=== PATIENT | female | born 1970 | race Caucasian/White ===

== ENCOUNTER 2022-09-08 07:45 | Observation (INO) ==
--- NOTE | 2022-09-01 15:22 | Anesthesiology Consultation ---
Date of Service September 01, 2022 Assessment & Plan (1) Encounter for pre-operative examination: - COVID screening: Per assessment on 09/01: No known COVID-19 positive contacts or current COVID-19 related symptoms. Travel screen negative. Patient vaccinated. At surgeon discretion if preop Covid testing being done. - Check test AM DOS Chart Review Chart Review: Acceptable Risk for Surgery and Patient NOT seen in Pre Admission Testing History Surgery Operation Date: 09/08/22 07:00 Proposed Procedures p Right Breast Mastectomy with [place] Lymph Node Biopsy (Injection Only Nuc Med at 800) - Flash Scott MD, FACS Height/Weight Height: 5 ft 5.5 in Weight: 56.699 kg Allergies Allergy/AdvReac Type Severity Reaction Status Date / Time amoxicillin Allergy Intermediate Hives Verified 09/01/22 14:56 hydromorphone [From Dilaudid] AdvReac Severe Vomiting Verified 09/01/22 14:56 Medications Home Medications Medication Instructions Recorded Confirmed Last Taken clindamycin HCl 300 mg capsule 300 mg PO TID 1 week #21 caps 08/25/22 09/01/22 Unknown diazepam 2 mg tablet (Valium) 2 mg PO TID PRN muscle spasm #10 08/25/22 09/01/22 Unknown tabs loratadine 10 mg tablet (Claritin) 10 mg PO QAM 08/25/22 09/01/22 Unknown oxycodone-acetaminophen 5 mg-325 1 tab PO Q4H PRN pain #18 tabs 08/25/22 09/01/22 Unknown mg tablet (Endocet) Past Medical History Medical History (Updated 09/01/22 @ 15:19 by Nakia Mcpherson) Anemia mild Breast cancer left breast (9 yrs ago) > mastectomy; currently having symptoms of breast cancer on right side History of COVID-19 06/18-06/24/22 (home test), fever, chills, diarrhea, headache, muscle aches, fatigue > resolved Migraine "gets after anesthesia" Past Family History Family History (Updated 05/08/22 @ 16:52 by Marcia Negron RN) Father Diabetes Heart disease Grandmother (Paternal) Diabetes Mother Breast cancer Hypertension Past Surgical History Surgical History (Updated 09/01/22 @ 15:03 by Dinorah Granado) H/O breast reconstruction left H/O left mastectomy (2011) History of colonoscopy (2001) History of dilatation and curettage History of esophagogastroduodenoscopy (EGD) History of lumpectomy of right breast (2011) History of photorefractive keratectomy (PRK) History of tonsillectomy (1979) History of tooth extraction Hx of breast reduction, elective right Social History Smoking Status: Never smoker Do You Dip or Chew Tobacco: No Hx Alcohol Use: Yes Alcohol type: beer, wine and hard liquor alcohol intake frequency: other Alcohol Intake Frequency Comment: 1-2 DRINKS PER WEEK Hx Substance Use: No substance use type: does not use Lab Results Anesthesia Preop Results Results Anesthesia Widget: WBC 6.47 K/ul (4.8-10.8) 08/28/22 Hgb 12.9 g/dl (12.0-16.0) 08/28/22 Hct 38.9 % (37.0-47.0) 08/28/22 Plt 269 K/uL (130-400) 08/28/22 Na 140 mmol/L (136-145) 08/28/22 K 4.0 mmol/L (3.5-5.1) 08/28/22 Cl 105 mmol/L (98-107) 08/28/22 CO2 28 mmol/L (21-32) 08/28/22 BUN 16 mg/dl (6-23) 08/28/22 Creat 0.94 mg/dl (0.6-1.2) 08/28/22 Glucose Level 86 mg/dl (70-99(Fasting)) 08/28/22 PT 10.5 Seconds (9.0-12.0) 08/28/22 INR 1.0 (0.9-1.1) 08/28/22 Testing Electrocardiogram Date: 08/28/22 Findings: + NSR @ (51)
[~2022-09-08 07:45] MED LIST: CLINDA 900 MG **Premixed Bag IV SCH; LR 15ML/HR IV SCH
--- NOTE | 2022-09-08 09:08 | History & Physical Bridge Note ---
Date of Service September 08, 2022 History & Physical Bridge Note I have examined the patient, reviewed the History & Physical and in the interval since the performance of the History & Physical I have noted the following changes of clinical significance: no changes noted
[2022-09-08] MEDS ORDERED: BUPIVACAINE 0.5 % 5 MG/1 ML MPF 30ML VIAL ONE (10:53)
[2022-09-08] MEDS ORDERED: GENTAMICIN SULFATE 40 MG/ML 2 ML VIAL ONE ×2 (10:53→13:37)
[2022-09-08] MEDS ORDERED: LIDOCAINE 2% MPF LOCAL 5 ML VIAL ONE (10:54)
[2022-09-08] MEDS ORDERED: MIDAZOLAM HCL 1 MG/ML 2ML VIAL ONE (10:54)
[2022-09-08] MEDS ORDERED: ceFAZolin 330 MG/ML 1 GM VIAL ONE ×2 (10:54→13:37)
[2022-09-08] MEDS ORDERED: PROPOFOL IV EMULSION 10 MG/ML 20 ML VIAL IV ONE (10:54)
[2022-09-08] MEDS ORDERED: METHYLENE BLUE 0.5% 10 ML VIAL ONE (10:54)
[2022-09-08] MEDS ORDERED: fentaNYL citrate PF 100 MCG/2 ML VIAL ONE ×2 (10:54→12:15)
[2022-09-08] MEDS ORDERED: LIDOCAINE/EPINEPHRINE 1% 20 ML VIAL ONE (10:54)
[2022-09-08] MEDS ORDERED: ATROPINE SULFATE 0.1 MG/ML 10ML SYR IV PRN (10:56)
[2022-09-08] MEDS ORDERED: ePHEDrine sulfate 50 MG/ML AMP IV PRN (10:56)
[2022-09-08] MEDS ORDERED: PROMETHAZINE HCL 6.25 MG in SODIUM CHLORIDE 0.9% 50 ML IV PRN (10:56)
[2022-09-08] MEDS ORDERED: ONDANSETRON INJ 2 MG/ML 2 ML VIAL IV PRN ×2 (10:56→15:13)
[2022-09-08] MEDS ORDERED: ACETAMINOPHEN 1000 MG/100 ML IV IV ONE (11:02)
[2022-09-08] MEDS ORDERED: FAMOTIDINE/PF 20 MG/2 ML VIAL IV ONE (11:02)
[2022-09-08] MEDS ORDERED: ONDANSETRON INJ 2 MG/ML 2 ML VIAL ONE (12:16)
[2022-09-08] MEDS ORDERED: ePHEDrine sulfate 50 MG/ML AMP ONE (12:16)
[2022-09-08] MEDS ORDERED: KETAMINE 50 MG/5 ML SYRINGE ONE (12:43)
--- NOTE | 2022-09-08 13:09 | Post Operative Brief Note ---
PG Immediate Post Op with CF Date of Surgery September 08, 2022 Pre & Post Diagnosis Operation Date: 09/08/22 11:20 Pre-Op Diagnosis: Lump Right Breast, History Left Breast Cancer Post-Op Diagnosis: Lump Right Breast, History Left Breast Cancer I identified the patient and participated in the time-out.: Yes Procedure Operation Date: 09/08/22 11:20 Actual Procedures p Right Breast Mastectomy with [place] Lymph Node Biopsy(Left) - Flash Scott MD, FACS s Right First Stage Immediate Breast Reconstruction with Tissue Expanders and Acellular Dermal Matrix(Right) - Karon Navarro MD Surgeon Flash Scott MD, FACS Fitter Hand Jes Zapata Estimated Blood Loss 20 Findings Consistent with Post-Op Diagnosis Right breast tissue and right sentinel lymph nodes Specimens Specimen Description: A. Right [place] lymph node B: Right Breast Silk Suture Lateral
--- NOTE | 2022-09-08 13:51 | Operative Report (OR) ---
DATE OF OPERATION: 09/08/2022. NAME OF OPERATION: Right mastectomy with sentinel lymph node biopsy. PREOPERATIVE DIAGNOSIS: History of left breast cancer. POSTOPERATIVE DIAGNOSIS: History of left breast cancer. STAFF SURGEON: Flash Scott MD. CEMENT CAR DUMPER: Jeana Duggan PA-C and Viji Galloway. ANESTHESIA: General. DESCRIPTION OF PROCEDURE: The patient was brought in the operating room, placed on the operating table in the supine position. Her right arm was extended onto an arm board. A roll was placed under her right shoulder. The patient had a history of breast cancer as a young woman with a left mastectomy. She wishes to have a right prophylactic mastectomy. Therefore, we are proceeding with right mastectomy and sentinel lymph node biopsy on the right side. She is going to have reconstruction. The patient prepped and draped in the usual fashion. My medical assistant secretary helped with prepping, draping, removal of breast tissue, removal of the right axillary lymph nodes. Incision was made in the right axilla using Neoprobe, carrying dissection down through subcutaneous superficial scar tissue, which may have been from her prior surgery in the right breast, which was a mammopexy. We did find the sentinel lymph nodes and they were sent for routine pathology. At this point, elliptical incision was made around the nipple areolar complex and then dissection carried down the breast tissue from the subcutaneous tissue. There was scar tissue inferiorly from her previous mammopexy. The breast was marked with a long silk suture lateral. After the mastectomy, Dr. Navarro and her team took over to complete the initial reconstruction. Job ID: [id number] [facility]
[2022-09-08] MEDS ORDERED: SODIUM CHLOR/HYPOCHLOROUS ACID 475 ML BTL IR ONE (14:09)
[2022-09-08] MEDS ORDERED: SUGAMMADEX SODIUM 200 MG/2 ML VIAL IV ONE (14:39)
[2022-09-08] MEDS ORDERED: LORazepam 0.5 MG TAB PO PRN (15:13)
[2022-09-08] MEDS ORDERED: MoRPHine SULFATE 4 MG/ML 1 ML CARP\\VIAL IV PRN (15:13)
[2022-09-08] MEDS ORDERED: MoRPHine SULFATE 2 MG/ML CARP IV PRN (15:13)
[2022-09-08] MEDS ORDERED: diphenhydrAMINE Capsule 25 MG CAP PO PRN (15:13)
[2022-09-08] MEDS ORDERED: PROMETHAZINE HCL 12.5 MG in SODIUM CHLORIDE 0.9% 50 ML IV PRN (15:13)
[2022-09-08] MEDS ORDERED: diphenhydrAMINE 50 MG/ML VIAL IV PRN (15:13)
[2022-09-08] MEDS ORDERED: oxyCODONE/ACETAMINOPHEN 5mg/325mg TAB PO PRN ×2 (15:13)
[2022-09-08] MEDS ORDERED: ACETAMINOPHEN 325 MG TAB PO PRN ×2 (15:13→21:23)
--- NOTE | 2022-09-08 15:21 | Post Operative Brief Note ---
PG Immediate Post Op with CF Date of Surgery September 08, 2022 Pre & Post Diagnosis Operation Date: 09/08/22 11:20 Pre-Op Diagnosis: Lump Right Breast, History Left Breast Cancer Post-Op Diagnosis: Lump Right Breast, History Left Breast Cancer I identified the patient and participated in the time-out.: Yes Procedure Operation Date: 09/08/22 11:20 Actual Procedures p Right Breast Mastectomy with [place] Lymph Node Biopsy(Left) - Flash Scott MD, FACS s Right First Stage Immediate Breast Reconstruction with Tissue Expanders and Acellular Dermal Matrix(Right) - Karon Navarro MD Surgeon Karon Navarro MD Lap Layer Shanta Graff MD Estimated Blood Loss 35 (1st Procedure 20 ml) Findings Consistent with Post-Op Diagnosis Specimens Specimen Description: A. Right [place] lymph node B: Right Breast Silk Suture Lateral Drains Sherwin-Lowe Drain
[2022-09-08] MEDS: fentaNYL citrate PF 100 MCG/2 ML VIAL IV PRN ×4 (15:25→16:01)
--- NOTE | 2022-09-08 15:35 | Operative Report ---
PG Post Operative Report Pre & Post Diagnosis Operation Date: 09/08/22 11:20 Pre-Op Diagnosis: Lump Right Breast, History Left Breast Cancer Post-Op Diagnosis: Lump Right Breast, History Left Breast Cancer I identified the patient and participated in the time-out.: Yes Procedure Operation Date: 09/08/22 11:20 Actual Procedures p Right Breast Mastectomy with [place] Lymph Node Biopsy(Left) - Flash Scott MD, FACS s Right First Stage Immediate Breast Reconstruction with Tissue Expanders and Acellular Dermal Matrix(Right) - Karon Navarro MD Surgeon Karon Navarro MD Special Projects Manager Shanta Graff MD Estimated Blood Loss 35 (1st Procedure 20 ml) Findings Consistent with Post-Op Diagnosis Specimens none Drains NELLIE x 1 Anesthesia Type General Complications none Indications prophylactic right mastectomy, desiring immediate reconstruction Description of Procedure Patient was marked in the preoperative holding area. She underwent right mastectomy with Dr. Scott. After completion of the mastectomy, a new timeout was performed, the chest was reprepped and new drapes were placed. Hemostasis was achieved with electrocautery. Pectoralis major muscle was then identified and elevated. Inferior attachments of pectoralis major muscle were divided along the ribs medially toward the sternum, leaving the medial attachments intact due to very thin overlying inferior mastectomy flap. None of the sternal attachments were dissected. The retropectoral plane was then developed using electrocautery. Hemostasis was achieved using cautery. Once adequate dissection had been performed, I then chose a piece of medium contour thick AlloDerm which was then used to create a sling for the lower pole. This was first sutured to the inframammary fold using 2-0 Vicryl U stitches. Pocket was then measured and base diameter was 13 cm. Therefore, I selected a [employer] style 133S MVT tissue airborne mission systems with base diameter of 13 cm, fill volume 400 cc. The airborne mission systems was prepared and air was aspirated out. The airborne mission systems was soaked in antibiotic irrigation and antibiotic irrigation was used to irrigate the pocket. All instruments were wiped down and gloves were changed. The pocket was copiously irrigated with Vashe wound wash and antibiotic irrigation. Automatic Profile Sander Operator was placed along the inframammary fold as medially as possible. Suture tabs were sutured down to underlying periosteum using a 2-0 Vicryl suture. The remainder of the airborne mission systems was then enclosed using 2-0 Vicryl running suture to reapproximate the AlloDerm which had been trimmed to size and this was approximated to the pectoralis major muscle. Laterally, this was closed down using 2-0 Vicryl interrupted sutures as well. A 15-Chinese Weston drain was placed in the wound and brought out through a separate stab incision. Prior to reapproximating the wound the fill port was identified using the magna-finder and accessed using a Fourte needle. A total of 50 mL were placed prior to closure in order to avoid putting stress on the skin flaps. Wound was reapproximated using 2-0 Vicryl deep dermal suture, 3-0 PDS superficial dermal suture and 3-0 Monocryl running subcuticular suture. Drain was sutured in place using 3-0 nylon. Dermabond was applied. An identical procedure was performed on the right side. The drain site was dressed using Acticoat dry dressing and Tegaderm. A Provena Meg dressing was placed over the incision. Procedure was tolerated well. Shanta Bill MD served as 1st anesthesiology physician assistant. I attest to the content of the Intraoperative Record and any orders documented therein. Any exceptions are noted below.
--- NOTE | 2022-09-08 15:49 | Anesthesiology Progress Note ---
Date of Service September 08, 2022 Anesthesia Post Procedure Vital Signs Vital Signs: Temp Pulse Pulse Resp BP Pulse Ox O2 Del Method 09/08/22 15:40 66 14 124/75 99 Room Air 09/08/22 15:30 66 14 129/77 99 Room Air 09/08/22 15:21 36 C L 72 14 128/66 100 Oxymask 09/08/22 09:27 36.7 C 69 18 127/57 L 100 Room Air O2 Flow Rate 09/08/22 15:40 09/08/22 15:30 09/08/22 15:21 9 09/08/22 09:27 Pain Intensity Right Chest: Pain Intensity: 4 Transfer of Care Handoff Completed per policy Notes Mental Status: alert / awake / arousable and participated in evaluation Patient Amnestic to Procedure: Yes Nausea / Vomiting: adequately controlled Pain: adequately controlled Airway Patency, RR, SpO2: stable & adequate BP & HR: stable & adequate Hydration State: stable & adequate Anesthetic Complications: no major complications apparent and Pt Satisfied with anesthetic care
--- NOTE | 2022-09-08 16:07 | Nuclear Medicine Report ---
LYMPHOSCINTIGRAPHY CLINICAL HISTORY: Right breast cancer. PROCEDURE: Using standard sterile technique, 4 intradermal periareolar and one deep injection of 491. 31 uCi of Lymphoseek was placed in the right breast. The patient tolerated the procedure well. There were no immediate complications. The patient was subsequently transported to the surgical suite. No i maging was obtained at the referring physician's request. IMPRESSION: Injection of 421.31 uCi of Lymphoseek in the right breast. ACT 112: Negative or not required by law. Electronically signed by: Miguelangel Garcia M.D. 09/08/2022 4:06 PM
[2022-09-08] MEDS: D5W AND 1/2NSS + 20MEQ KCL 20 MEQ/1,000 ML BAG IV SCH (18:10)
[2022-09-08] MEDS: CLINDAMYCIN/D5W 600 MG/50 ML BAG IV SCH (18:35)
[2022-09-08] MEDS ORDERED: traMADol HCL 50 MG TABLET PO PRN (21:21)
[2022-09-09] MEDS: CLINDAMYCIN/D5W 600 MG/50 ML BAG IV SCH ×2 (01:17→09:45)
[2022-09-09] MEDS: KETOROLAC TROMETHAMINE 15 MG/ML VIAL IV PRN ×2 (01:19→07:47)
[2022-09-09] MEDS: D5W AND 1/2NSS + 20MEQ KCL 20 MEQ/1,000 ML BAG IV SCH (07:51)
--- NOTE | 2022-09-09 08:13 | Surgery Progress Note ---
Date of Service September 09, 2022 Assessment & Plan (1) Encounter for breast reconstruction following mastectomy: Plan: POD#1 Right breast mastectomy, SLNB, first stage immediate breast reconstruction 1. pain well controlled and vac functioning. d/c home today, office follow-up tomorrow Admission and Anticipated Discharge Date Admission Date: September 08, 2022 Subjective Patient resting in bed. Pain is controlled. She is tolerating regular diet. Physical Exam Physical Exam: wound vac right chest holding suction. NELLIE drain with scant serosang output Results & Data Vital Signs (Past 12 Hours) Vital Signs Temp Pulse Resp BP Pulse Ox O2 Del Method 09/08/22 21:00 Room Air 09/08/22 22:46 37.4 C 77 16 102/67 97 Room Air PG Care Time/CCT Total # of Minutes Spent Total Time Spent with Patient: Total time spent is greater than 50% in coordination of care (as documented) at patient's floor/unit and/or counseling patient: Coding Level of Care Code 89070 Post Operative Follow-Up Diagnoses Encounter for breast reconstruction following mastectomy Z42.1
--- NOTE | 2022-09-09 08:33 | Surgery Progress Note ---
Date of Service September 09, 2022 Assessment & Plan (1) H/O right mastectomy: Plan: Status post right mastectomy with sentinel lymph node biopsy Reconstruction by Dr. Navarro He did have some pain requiring pain medication but seems to be doing relatively well Discharge home per plastic surgery team Can see in the office in 2 to 3 weeks We will call her with pathology Admission and Anticipated Discharge Date Admission Date: September 08, 2022 Results & Data Vital Signs (Past 12 Hours) Vital Signs Temp Pulse Resp BP Pulse Ox O2 Del Method 09/08/22 21:00 Room Air 09/08/22 22:46 37.4 C 77 16 102/67 97 Room Air PG Care Time/CCT Total # of Minutes Spent Total Time Spent with Patient: Total time spent is greater than 50% in coordination of care (as documented) at patient's floor/unit and/or counseling patient: Coding Level of Care Code None Diagnoses H/O right mastectomy Z90.11
[2022-09-09] MEDS ORDERED: MULTIVITAMIN TAB PO SCH (09:00)
--- NOTE | 2022-09-09 16:02 | Discharge Summary ---
Date of Service September 09, 2022 Admission HPI Per Admitting Provider See admission H&P. Patient with history of left breast cancer, here for prophylactic right breast mastectomy and reconstruction. Principal Diagnosis History of Left Breast Cancer Discharge Exam VSS. wound vac right chest holding suction. NELLIE drain with scant serosang output Discharge Data Allergies Allergy/AdvReac Type Severity Reaction Status Date / Time shellfish derived Allergy Severe Vomiting Verified 09/08/22 09:17 amoxicillin Allergy Intermediate Hives Verified 09/08/22 09:17 hydromorphone [From Dilaudid] AdvReac Severe Vomiting Verified 09/08/22 09:17 Procedures Performed Operation Date: 09/08/22 11:20 Actual Procedures p Right Breast Mastectomy with [place] Lymph Node Biopsy(Left) - Flash Scott MD, FACS s Right First Stage Immediate Breast Reconstruction with Tissue Expanders and Acellular Dermal Matrix(Right) - Karon Navarro MD Ordered Studies 09/08/22 05:00 US - OR guided needle placemen Routine Hospital Course (1) Encounter for breast reconstruction following mastectomy: Patient presented to [facility] with history of left breast cancer. She was taken to the OR and underwent right mastectomy, SLNB, and immediate breast reconstruction using tissue precinct police captain and acellular dermal matrix with Dr. Navarro. A Preveena Meg Wound vac was applied in the OR. There were no intraoperative complications. She was taken to recovery and transferred to med/surg for observation. On POD#1, she was feeling well. She was tolerating a regular diet and ambulating. On exam, her vitals were stable. Her wound vac was functioning. Her drain had appropriate output. She was discharged home with instructions to follow-up in the office in one day. Total Time Total Time Spent Total Time Spent (In Minutes): 15 Total Time Includes: Examination of the Patient, Medication Reconciliation and Communication With Other Providers Discharge Plan Discharge Items Patient Disposition: Home - Self-Care Reason For Visit: POST-OP Discharge Diagnosis: right breast mastectomy breast reconstruction Activity: As commented below Lifting: No more than 10 pounds Bathing Comment: keep incisions dry until seen in follow up Sexual Activity: When tolerated Non-emergency contact: Surgeon Call non-emergency contact if: you have any medication questions, your pain is not controlled, you have a fever, your wound has increased redness, your wound has increased drainage and your wound pain has increased Follow-up/Referrals: Karon Navarro MD [Physician] - 09/10/22 1:00 pm (APPOINTMENT WITH VANNESA RUSH PA-C) Flash Scott MD, FACS [Physician] - 09/24/22 10:15 am Carline Inman PA-C [Primary Care Provider] - Diet: Regular Addtl Attending Provider Instructions: ACTIVITY RECOMMENDATIONS: __Normal activities _x_No bending, lifting or straining. Keep arms at shoulder height or below __No driving __Driving allowed when you are off pain medications _x_Walking permitted __You should have help at home for ___ days DRESSINGS: __No dressings required _x_Keep dressings dry/in place until first office visit __Remove dressings ___ and leave dressings off __Apply ice ___ days __Remove dressings and reapply garment __Apply antibiotic ointment (Bacitracin, Neosporin, etc) to wounds 3-4 times/day for 10 days BATHING: _x_Keep dressings dry _x_Sponge bathing permitted away from wound vac __Showering permitted _x_No swimming, hot tubs or soaking in a tub MEDICATIONS: Resume previous medications unless instructed otherwise by your surgeon. _x_Do not use aspirin, Motrin, Advil or Ibuprofen as these may promote bleeding. Please use Tylenol. _x_Prescription(s) provided: pain medication and antibiotics were prescribed at your last office visit. start antibiotics today OTHER INSTRUCTIONS: _x_Record drain output 2-3 times per day SPECIAL CARE INSTRUCTIONS: * It is normal to have a mild fever after surgery. If your temperature is higher than 101.5 degrees F, please call the office at [phone]. * Constipation is a typical side effect of pain medication. An [id number] stool softener will help relieve this. * Leaking around surgical drains may occur and should not cause concern. Sometimes these drains become clogged. If this happens, remove the bulb and milk the clot out of the tube, then replace the bulb. * Drainage from wounds after liposuction is normal and should be expected. Garments will become soiled. You should protect furniture and bedding. This drainage should mostly subside within 2-3 days. Leave garments in place unless instructed to remove them. * If you have unusual drainage from a wound or are concerned you have an inf ection or have any questions or concerns, please call the office at [phone]. FOLLOW UP VISIT: If not already scheduled, please call the office, , when you return home after surgery to schedule an appointment to be seen in _1__ days. Follow-up Dr. Scott2 to 3 weeks-see phone number below FOLLOW UP VISIT: If not already scheduled, please call the office for a follow-up visit. OFFICE PHONE NUMBER: Dr. Scott Office Pending Studies at Discharge: Yes Studies:: surgical pathology Stand-Alone Forms: My [facility] Medications and DC Order Prescriptions: Continued loratadine [Claritin] 10 mg tablet 10 mg PO QAM clindamycin HCl 300 mg capsule 300 mg PO TID 7 Days Qty: 21 0RF Rx Instructions: post-op medication oxycodone-acetaminophen [Endocet] 5-325 mg tablet 1 tab PO Q4H PRN (Reason: pain) Qty: 18 0RF Rx Instructions: initial therapy (post op medication) Dr. Navarro [id number] diazepam [Valium] 2 mg tablet 2 mg PO TID PRN (Reason: muscle spasm) Qty: 10 0RF Rx Instructions: post op medication Discontinued ibuprofen [Advil] 200 mg Tablet 200 mg PO Q6H PRN (Reason: Pain) Discharge Orders: Discharge Order (Routine); Ordered 09/09/22 Ordered By: Viji Bustos/Other Patient Handouts: Mastectomy Admission Data Admit Date/Time: 09/08/22 15:14 Attending Provider: Flash Scott Admit Provider: Karon Navarro Primary Care Provider: Carline Inman Other Interventions: Discharge Summary Assessment (RN) Last Done: 09/09/22 10:01 Coding Level of Care Code 40707 OBS Care - Discharge Diagnoses Encounter for breast reconstruction following mastectomy Z42.1
== END 2022-09-09 11:20 | disposition home or self-care (01) ==
LOC: PACUINP 07:45 → ASU 07:45 → 3W 18:08
DX: Z79.899 Other long term (current) drug therapy; Z20.822 Contact with and (suspected) exposure to COVID-19; Z91.013 Allergy to seafood; Z88.5 Allergy status to narcotic agent; Z90.12 Acquired absence of left breast and nipple; D24.1 Benign neoplasm of right breast; Z85.3 Personal history of malignant neoplasm of breast; Z88.1 Allergy status to other antibiotic agents